=== PATIENT | male | born 1940 | race Caucasian/White ===

== ENCOUNTER 2022-03-26 06:21 | Day surgery (SDC) | payer MEDICARE, BC ==
[2022-03-21 15:43] VITALS: BMI 39.7
[2022-03-26] MEDS ORDERED: SUGAMMADEX SODIUM 200 MG/2 ML VIAL ONE (07:11)
[2022-03-26] MEDS ORDERED: Lidocaine 1% MPF 2 ML VIAL ONE (08:06)
[2022-03-26] MEDS ORDERED: EPINEPHrine 1 MG/ML AMP ONE (09:16)
[2022-03-26] MEDS ORDERED: PROPOFOL 40 ML ONE (09:17)
[2022-03-26] MEDS ORDERED: Fentanyl 100 MCG/2 ML VIAL ONE (09:17)
[2022-03-26] MEDS ORDERED: Ondansetron PF 4 MG/2 ML Vial ONE (09:17)
[2022-03-26] MEDS ORDERED: PROPOFOL 20 ML ONE (09:17)
[2022-03-26] MEDS ORDERED: Lidocaine 2% PF 5 ML VIAL ONE (09:17)
[2022-03-26] MEDS ORDERED: Midazolam HCl 2 mg/2 ml Vial ONE (09:17)
[2022-03-26] MEDS ORDERED: Dexamethasone 20 MG/5 ML VIAL ONE (09:17)
[2022-03-26] MEDS ORDERED: Rocuronium Bromide 10 MG/ML (10ML VIAL) ONE (09:17)
== END 2022-03-26 11:35 | disposition home or self-care (01) ==
LOC: CSHSDC 06:21
PROVIDERS: ATTEND Otolaryngology Otolaryngic Allergy
PROC: 0CBV8ZX Excision of Left Vocal Cord, Via Natural or Artificial Opening Endoscopic, Diagnostic (ICD-10-PCS; principal; 2022-03-26)
PROC: 0CDT8ZZ Extraction of Right Vocal Cord, Via Natural or Artificial Opening Endoscopic (ICD-10-PCS; 2022-03-26)
DX: D02.0 Carcinoma in situ of larynx (principal); H60.62 Unspecified chronic otitis externa, left ear; Z79.899 Other long term (current) drug therapy; Z79.84 Long term (current) use of oral hypoglycemic drugs; Z79.01 Long term (current) use of anticoagulants; Z87.891 Personal history of nicotine dependence; E11.9 Type 2 diabetes mellitus without complications; I10 Essential (primary) hypertension
CPT/HCPCS: 36416; 88305; 88331; 88342; J0171; J1100; J2001; J2250; J2405; J2704; J3010